=== PATIENT | male | born 1990 | race Caucasian/White ===

== ENCOUNTER 2018-12-03 02:12 | Emergency (ER) | payer BC ==
[~2018-12-03] VITALS: Ht 167.6 cm; Wt 88.1 kg
[2018-12-03] MEDS ORDERED: AMOX500C2 PO (02:29)
[2018-12-03] MEDS ORDERED: HYDR-4383 PO (02:29)
[2018-12-03] MEDS ORDERED: amoxicillin 250mg capsule PO ONE (02:30)
[2018-12-03 02:41] VITALS: BP 121/74
== END 2018-12-03 02:43 | disposition home or self-care (01) ==
LOC: ER 02:13
DX: K08.89 Other specified disorders of teeth and supporting structures (principal); Z79.899 Other long term (current) drug therapy
CPT/HCPCS: 99283

== ENCOUNTER 2023-11-10 16:50 | Emergency (ER) | payer SELFPAY ==
[~2023-11-10] VITALS: Ht 167.6 cm; Wt 106.9 kg
[~2023-11-10 16:50] MED LIST: HYDR-4383 PO
[2023-11-10] MEDS ORDERED: CYCL-1 PO (17:57)
[2023-11-10] MEDS ORDERED: NAPR-56 PO (17:57)
[2023-11-10 18:09] VITALS: BP 158/78; PULSE 70; RESP 16; TEMP 98.2; O2SAT 98
== END 2023-11-10 19:31 | disposition home or self-care (01) ==
LOC: ER 16:51
DX: S61.211A Laceration without foreign body of left index finger without damage to nail, initial encounter (principal); S63.91XA Sprain of unspecified part of right wrist and hand, initial encounter; S63.92XA Sprain of unspecified part of left wrist and hand, initial encounter; M79.641 Pain in right hand; M79.642 Pain in left hand; Y04.0XXA Assault by unarmed brawl or fight, initial encounter; Y93.89 Activity, other specified; Y92.89 Other specified places as the place of occurrence of the external cause; Y99.8 Other external cause status
CPT/HCPCS: 12001; 73030; 73130; 99284